=== PATIENT | male | born 1970 | race Caucasian/White ===

== ENCOUNTER 2020-09-28 22:38 | Emergency (ER) | payer SELFPAY ==
[2020-09-28] MEDS ORDERED: Acetaminophen/HYDROcodone 325-10 MG Tab PO ONE (22:39)
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
[2020-09-28 23:30] LABS: ANION GAP 14.5 mEq/L (7-13); CHLORIDE,CL 105 mmol/L (98-107); SODIUM,NA 144 mmol/L (136-145)
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
[2020-09-28] MEDS ORDERED: Lidocaine 2% with EPINEPHrine 1:200,000 20 ML SDV INJECT ONE (23:40)
[2020-09-28] MEDS ORDERED: ceFAZolin 1 GM in Sodium Chloride 0.9% 50 ML IV ONE (23:40)
[2020-09-28] MEDS ORDERED: Diphtheria,Pertussis(Acell),Tetanus Vaccine 0.5 ML Syringe IM ONE (23:43)
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
[2020-09-29] MEDS ORDERED: Ketorolac 30 MG/ML SDV IVPUSH ONE (05:39)
[2020-09-29] MEDS ORDERED: Acetaminophen/HYDROcodone 325-10 MG Tab ONE (05:45)
== END 2020-09-29 06:15 | disposition home or self-care (01) ==
LOC: DL.ED 22:38
DX: S06.0X0A Concussion without loss of consciousness, initial encounter (principal); S01.01XA Laceration without foreign body of scalp, initial encounter; S60.221A Contusion of right hand, initial encounter; F10.129 Alcohol abuse with intoxication, unspecified; Z23 Encounter for immunization; V86.65XA Passenger of 3- or 4- wheeled all-terrain vehicle (ATV) injured in nontraffic accident, initial encounter; Y90.7 Blood alcohol level of 200-239 mg/100 ml
CPT/HCPCS: 12004; 36415; 70450; 70486; 72125; 73120-RT; 80053; 80307; 85025; 90471; 90715; 96365; 99283; 99284-25; A9270-GY; J0690; J1885